=== PATIENT | male | born 1960 | race Caucasian/White ===

== ENCOUNTER → 2020-09-21 10:05 | Outpatient (BNVA) | payer OTHER, SELFPAY | PROVIDERS: Visit Provider Orthopaedic Surgery | DX: M25.562 Pain in left knee (principal) | CPT/HCPCS: 73560; 73565 ==

== ENCOUNTER 2020-11-07 10:28 | Outpatient (CLI) | payer OTHER, SELFPAY ==
--- NOTE | 2020-11-07 11:00 | MR_ITS ---
WS: [id number] MRI LEFT KNEE NONCONTRAST TECHNIQUE: Axial PD, coronal PD fat sat, coronal PD, sagittal PD, and sagittal PD fat-sat images obta ined. CLINICAL INFORMATION: M25.569 - Pain in unspecified knee COMPARISON: None. FINDINGS: Distal quadriceps and patella tendons are intact. Normal ACL and PCL. Hypertrophic patella. Small hor izontal tear involving the posterior horn medial meniscus extending to the articular surface. Normal lateral meniscus. Mild chronic thinning of the medial and lateral meniscus. Degenerative narrowing in volving both the medial and lateral joint compartments. Subchondral edema in the lateral tibial plate au. Mild chondromalacia patella. Normal popliteal fossa. Normal medial and lateral collateral ligaments. MR/MR knee LT wo con* [id number] IMPRESSION: 1. Anterior and posterior cruciate ligaments are intact. 2. Small horizontal tear involving the posterior horn medial meniscus extendin g to the articular surface. 3. Medial and lateral collateral ligaments are intact. 4. Normal popliteal fossa. 5. Mild chondromalacia patella. 6. Moderate degenerative narrowing involving the medial and lateral joint comp artments with mild to moderate chondromalacia. Subchondral edema in the lateral tibial plateau.
== END 2020-11-07 10:29 | disposition home or self-care (01) ==
LOC: RADSHAW 10:30
PROVIDERS: PCP Physician Assistant; Visit Provider Orthopaedic Surgery
DX: M22.42 Chondromalacia patellae, left knee (principal); S83.242A Other tear of medial meniscus, current injury, left knee, initial encounter; X58.XXXA Exposure to other specified factors, initial encounter
CPT/HCPCS: 73721

== ENCOUNTER → 2020-11-18 14:22 | Outpatient (BNVA) | payer OTHER, SELFPAY | PROVIDERS: PCP Physician Assistant; Visit Provider Orthopaedic Surgery | DX: Z01.812 Encounter for preprocedural laboratory examination (principal); Z20.828 Contact with and (suspected) exposure to other viral communicable diseases | CPT/HCPCS: 87635 ==

== ENCOUNTER 2020-11-24 06:36 | Day surgery (SDC) | payer OTHER, SELFPAY ==
[2020-11-23 17:23] VITALS: BMI 24.3
[2020-11-24] VITALS (7 sets, daily range): BP systolic 121–147; BP diastolic 77–94; PULSE 65–73; RESP 12–18; TEMP 36.2–36.6; O2SAT 96–100
[2020-11-24] MEDS: sodium chloride 0.9% 1,000 ML 30 ML IV (07:06)
--- NOTE | 2020-11-24 08:04 | W.PM.OPSUD ---
Surgery/Procedure H&P Update DATE OF PROCEDURE: November 24, 2020 DATE H&P PERFORMED: 11/09/20 PREOP DIAGNOSIS: Knee left medial meniscal tear PLANNED PROCEDURE: Operation Date: 11/24/20 08:00 Proposed Procedures p left knee arthroscopy with medial meniscectomy 90092 s83.207A(Left) - Remi Wilde MD
--- NOTE | 2020-11-24 08:12 | ANES.PREANE2 ---
Pre-Anesthetic Assessment Pre-Anesthetic Assessment: Height/Weight: Height 1.73 m Weight 72.575 kg Temp Pulse Resp BP Pulse Ox 97.7 F 70 18 129/86 97 11/24/20 06:48 11/24/20 06:48 11/24/20 06:48 11/24/20 06:48 11/24/20 06:48 Preop Diagnosis: Knee left medial meniscal tear Proposed Procedure: Operation Date: 11/24/20 08:00 Proposed Procedures p left knee arthroscopy with medial meniscectomy 97657 s83.207A(Left) - Remi Wilde MD Familial anesthetic complications: None Was Beta Carmella taken within 24 hours: N/A Was Clonidine taken within 24 hours: N/A Last intake: Intake Last Liquid Date 11/23/20 Last Solid Date 11/23/20 Social: Social History: No alcohol and No tobacco Exam: Pre-Anes Outpt Exam: alert, oriented x 3, clear to auscultation bilaterally and regular rate & rhythm Airway: Cervical ROM: WNL MP: 3 Dentition: False Metabolic: Metabolic: Thyroid Anesthetic Plan: ASA status: 2 Anesthesia: General Risk of > 500 ml blood loss (7ml/kg in children): No Meds/Allergies Current Medications: Current Medications Generic Name Dose Route Start Last Admin Trade Name Freq PRN Reason Stop Dose Admin Sodium Chloride 1,000 mls @ 30 ml s/hr 11/24/20 06:45 11/24/20 07:06 Sodium Chloride 0.9% IV 11/25/20 06:44 30 mls/hr .Q24H LAYNE Administration PFSH Anesthesia PFSH: Social History Smoking and tobacco status: never smoked Alcohol intake: never Data Anesthesia Cardiac Studies: No Data to Display
[2020-11-24] MEDS: morphine 4 mg/mL SDV 1 mL 8 MG IM (08:25)
--- NOTE | 2020-11-24 09:18 | P.PCN_ITS ---
PACU note PACU note: VSS, Good respiratory effort, report to SIEVE MAKER Post-Anesthesia Exam: somnolent, arousable and vital signs stable
--- NOTE | 2020-11-24 09:18 | P.OP_ITS ---
Operative Report Date of procedure: November 24, 2020 Pre-op Diagnosis: Knee left medial meniscal tear Post-op diagnosis: same Post-op Findings: Same Procedure Done: Arthroscopic right medial meniscectomy Pathology: none sent Surgeon: Remi Wilde Anesthesia: General Estimated blood loss (mL): 5 Findings: The patient had a complex tear involving the central and inferior 75% of the posterior medial meniscus. His chondral surfaces were healthy Condition: stable Disposition: PACU Procedure: The patient was taken to the operating room and given a general anesthesia his knee was infiltrated with 30 cc of 0.5% Marcaine and 8 mg of morphine. He was given 2 g of Ancef. The leg was prepped and draped in the usual fashion. A timeout was performed. The knee was entered through standard inferior medial and inferior lateral portal. The diagnostic portion arthroscopy was performed revealing the the meniscal tearing. Initially tearing it seemed to involve the central 50% of the meniscus. Utilizing a basket and Rudd and [employer]ph[employer] Me Werewolf shaver, this revealed area of undersurface flap tearing. Utilizing the shaver and werewolf this was debrided back. Altogether approximately 25% of the superior lateral meniscus were left intact. Finally area flap tearing was identified attached to the root extending into the intercondylar notch. Working with the scope through the medial portal the werewolf probe could be introduced and this could be debrided back. The remainder of the knee arthroscopy is unremarkable. The knee was irrigated with saline. Portals were closed with 3-0 Prolene. Sterile dressings were applied. The patient was extubated taken recovery room in stable condition.
--- NOTE | 2020-11-24 09:18 | PM.PACU ---
PACU note PACU note: VSS, Good respiratory effort, report to DINING ROOM SERVER Post-Anesthesia Exam: somnolent, arousable and vital signs stable
--- NOTE | 2020-11-24 20:46 | ANE.PACU2 ---
Inpatient post-anesthesia follow up: Airway intact: Yes Vital signs: Temperature 97.8 F Pulse Rate 73 Respiratory Rate 18 Blood Pressure 147/94 Pulse Oximetry 99 Oxygen Delivery Me thod Room Air Oxygen Flow Rate 8 Fraction of Inspir ed Oxygen Hydration adequate: Yes Nausea and vomiting: No Pain level: 3 Mental status: Baseline
== END 2020-11-24 10:50 | disposition home or self-care (01) ==
PROVIDERS: PCP Physician Assistant; Visit Provider Orthopaedic Surgery
PROC: (CPT 29870; principal; 2020-11-24 08:00)
DX: S83.242A Other tear of medial meniscus, current injury, left knee, initial encounter (principal); X58.XXXA Exposure to other specified factors, initial encounter
CPT/HCPCS: 29881; J0690; J2270; J2704; J3010; J3490; J7030

== ENCOUNTER 2021-09-15 14:40 | Outpatient (CLI) | payer BC, SELFPAY ==
--- NOTE | 2021-09-15 15:08 | MR_ITS ---
WS: [id number] MRI HEAD WITH CONTRAST TECHNIQUE: Sagittal T1, T2 axial, T2 axial FLAIR, axial susceptibility weighted imaging, axial diffus ion weighted images, and coronal T2 images were obtained. Pre and post-T1 axial and post T1 coronal i mages. ADC and FSPGR images. CLINICAL INFORMATION: TIA COMPARISON: MRI and May 10, 2019. CT FINDINGS: No evidence of restricted diffusion to suggest acute ischemia. Ventricular system and basal cisterns are patent. Mild small vessel changes. Mild parenchymal volume loss. Normal posterior fossa. Normal v ascular flow voids at the skull base. No extra-axial fluid collections. No evidence of mass or mass e ffect. No hemosiderin on the susceptibly weighted images. Paranasal sinuses and mastoid air cells are well aerated. Normal optic chiasm and pituitary infundibulum. No abnormal gadolinium enhancement. No enhancing intr acranial lesions. Normal dural venous sinuses. MR/MR head wo/w con [id number] IMPRESSION: 1. No evidence of restricted diffusion to suggest acute ischemia. 2. Mild small vessel changes with moderate parenchymal volume loss. 3. No abnormal gadolinium enhancement. 4. No hemosiderin on susceptibly weighted images. 5. No acute intracranial findings. No significant changes since 2018
[2021-09-15] MEDS: gadobenate dimeglumine 20 mL vial IV (15:51)
--- NOTE | 2021-09-15 16:27 | USCV_ITS ---
Roman Israel Age: 61 Gender: M : 1960 Exam Date: 09/15/2021 16:32 Ordering Phys: Nicolette Howe Technologist: TEE [place]am [place] [facility] [place]: TIA BP: 150 / 83 HR: 88 Rhythm: Sinus Technical Quality: Technically difficult study MEASUREMENTS (Male / Female) Normal Values 2D ECHO LV Diastolic Diameter PLAX 3.9 cm 4.2 - 5.9 / 3.9 - 5.3 cm LV Systolic Diameter PLAX 2.6 cm IVS Diastolic Thickness 1.6 cm 0.6 - 1.0 / 0.6 - 0.9 cm IVS Systolic Thickness 1.4 cm LVPW Diastolic Thickness 0.9 cm 0.6 - 1.0 / 0.6 - 0.9 cm LVPW Systolic Thickness 1.4 cm LVOT Diameter 2.0 cm LV Ejection Fraction 2D Teich 63.9 % LV Ejection Fraction MOD 2C 61.9 % LV Ejection Fraction 2C AL 62.2 % LA Diameter 2.6 cm LA Width 3.4 cm LA Height 3.4 cm RA Width 3.2 cm RA Height 3.8 cm Aorta at Sinotubular Diameter 2.2 cm M-MODE Aortic Annulus Diameter 3.3 cm LA Ao Ratio MM 0.9 MV E Point Septal Separation 0.3 cm DOPPLER AV Peak Velocity 122.0 cm/s LVOT Peak Velocity 106.0 cm/s AV Area Cont Eq vti 2.8 cm squared AV Area Cont Eq pk 2.8 cm squared MV Area PHT 4.2 cm squared Mitral E to A Ratio 0.8 MV E' Velocity 25.8 cm/s Mitral E to MV E' Ratio 6.8 Mitral E to LV E' Lateral Ratio 6.1 Mitral E to LV E' Septal Ratio 7.7 TR Peak Velocity 246.0 cm/s TR Peak Gradient 24.2 mmHg TV Peak E Velocity 49.0 cm/s PV Peak Velocity 135.0 cm/s RV Acceleration Time 0.2 s RV Ejection Time 0.4 s RV AcT/ET 0.5 FINDINGS Left Ventricle Normal left ventricular cavity size. Normal left ventricular systolic function. No regional wall motion abnormalities. Left ventricular ejection fraction is estimated at 63 %. Grade I/IV diastolic dysfunction (abnormal relaxation filling pattern), normal to mildly elevated filling pressures. Right Ventricle The right ventricle is normal in size and function. RVSP could not be calculated due to incomplete tricuspid regurgitation velocity profile. Right Atrium The right atrium is normal in size. Left Atrium The left atrium is normal in size. Mitral Valve Structurally normal mitral valve without significant stenosis or prolapse. There is no mitral regurgitation. Aortic Valve Structurally normal aortic valve without significant sclerosis or stenosis. There is no aortic regurgitation. Tricuspid Valve Structurally normal tricuspid valve without significant stenosis or regurgitation. Pulmonic Valve Structurally normal pulmonic valve without significant stenosis. There is no pulmonic regurgitation. Pericardium Normal pericardium without effusion. Aorta Normal ascending aorta dimension. CONCLUSIONS 1-Normal left ventricular cavity size. Normal left ventricular systolic function. No regional wall motion abnormalities. Left ventricular ejection fraction is estimated at 63 %. Grade I/IV diastolic dysfunction (abnormal relaxation filling pattern), normal to mildly elevated filling pressures. 2-There is no pericardial effusion. 3-No significant valve abnormalities. 4-The right ventricle is normal in size and function. RVSP could not be calculated due to incomplete tricuspid regurgitation velocity profile. 5-No significant change since the prior echocardiogram study of 05/11/2019. Eddie Norman MD (Electronically Signed) Final Date: 16 September 2021 18:03 S EDGAR
== END 2021-09-15 14:41 | disposition home or self-care (01) ==
PROVIDERS: PCP Physician Assistant; Visit Provider Physician Assistant
DX: G45.9 Transient cerebral ischemic attack, unspecified (principal)
CPT/HCPCS: 70553; 93306

== ENCOUNTER 2022-03-11 10:21 | Observation (INO) | payer BC, SELFPAY ==
[2022-03-11] VITALS (11 sets, daily range): BP systolic 149–180; BP diastolic 82–110; PULSE 61–99; RESP 16–20; TEMP 36.4–36.7; O2SAT 94–98; BMI 22.0; BMI 22.1
--- NOTE | 2022-03-11 10:24 | ED_ITS ---
HPI - Trauma General: Chief Complaint: Trauma Stated Complaint: UNRESPONSIVE; FALL FROM LADDER Time Seen by Provider: 03/11/22 10:24 Limitations: other History of Present Illness: Mr. Owens is a 61-year-old gentleman with history of daily alcohol use who presents to the emergency department due to fall of unclear circumstances with positive loss of consciousness. Apparently he was painting a regular size wall and is unsure of what happened. Per EMS report the patient was completely unresponsive and there is a possibility of CPR performed however upon their arrival there initial thought was to fly him however he subsequently improved with normalization of mental status. He does not recall events. Does have a remote history of seizures though no underlying diagnosed seizure disorder. Patient himself only provides limited history. Onset (ago): minute(s) Loss of Consciousness: yes Context: fall Review of Systems General: Reports: 10 or more systems reviewed and unremarkable except in HPI and below [facility] ED PFSH: Medical History (Updated 03/25/22 @ 22:09 by Armando Wang MD) No significant past medical history Surgical History (Updated 03/25/22 @ 22:09 by Armando Wang MD) No significant past surgical history Social History Smoking and tobacco status: never smoked Alcohol intake: never Physical Exam Const: COMMON NORMALS: alert GENERAL APPEARANCE: cooperative and well developed HENMT: COMMON NORMALS: normocephalic HEAD & SCALP: normocephalic OTHER: No german signs or raccoon eyes. No hemotympanum. No otorrhea or rhinorrhea. Jaw alignment normal. Dentition baseline. No obvious bony step-offs. No septal hematoma. No evidence of ocular entrapment. Eye: COMMON NORMALS: conjunctivae normal CONJUNCTIVA: Yes conjunctivae normal SCLERA: sclerae normal Neck/C-Spine: COMMON NORMALS: supple GENERAL: Yes trachea midline Resp: COMMON NORMALS: normal respiratory effort and clear to auscultation bilaterally EFFORT & INSPECTION: Yes able to speak in complete sentences AUSCULTATION: clear to auscultation bilaterally Cardio: COMMON NORMALS: regular rate and regular rhythm RATE: regular rate RHYTHM: regular rhythm GI: COMMON NORMALS: Soft to palpation PALPATION: Yes Soft to palpation, Yes Tenderness to palpation present (GI), No Guarding due to palpation present (GI) and No Rigid due to palpation PERCUSSION: normal to percussion Extremity: GENERAL: Yes normal exam except as noted and No edema Neuro: COMMON NORMALS: moves all extremities SENSORIUM/ORIENTATION: Yes alert and No Orientation impaired Psych: COMMON NORMALS: mental status grossly normal and Normal thought process present THOUGHT PROCESS: Normal thought process present Course ED course: - Patient was seen and evaluated by me at bedside - Patient placed on cardiac monitors, IV access obtained - Initial evaluation notable for exam as above, scattered areas of tenderness to palpation. No focal neurologic deficits. - Labs personally interpreted by me. EKG with sinys rhythm, no stemi. -Tdap given for abrasions. IV fluids given - Labs notable for no leukocytosis or anemia. Metabolic panel is likely with evidence of dehydration, Anion gap significantly elevated. Transaminitis present. Delta troponin negative. Alcohol negative. - Imaging notable for negative head CT. Right-sided deviation of the nasal sep christian, patient reports that this is chronic. No evidence of septal hematoma or tenderness to palpation. Negative cervical spine CT. No acute traumatic injury to chest abdomen or pelvis. - Upon serial reexamination after treatment the patient was somewhat improved - Based on patient history, evaluation, and testing as interpreted the most likely cause of the patient's condition is syncope and fall of unclear etiology - The results of ED evaluation were discussed with the patient including plan f or admission due to requirement for level of care not available if discharged to prevent significant worsening/deterioration. - Admitting service was contacted and Dr Campbell with the hospitalist [facility] ahnd to admit the patient - Patient was admitted without further deterioration or significant events. Note: Click bubbles or prepopulated krishna in note writing are used for assistance with data collection and billing and are inherently more limited than narrative and other text portions of this note. Please use narrative for additional clinical history and defer to narrative/free test for any case of contradictory information. If information appears in only free text or click bubble it should be considered present or absent as reported. Please contact note television writer for clarifications of clinical information or contradictory information. MDM is a brief summary, contradictory or erroneous seeming information should be clarified and full note should be reviewed. Vital Signs: Vital signs: Vital Signs Temperature 97.7 F 03/12/22 19:06 Pulse Rate 84 03/12/22 19:06 Respiratory Rate 18 03/12/22 19:06 Blood Pressure 149/73 03/12/22 19:06 Pulse Oximetry 98 03/12/22 19:06 MDM - Trauma Medical Decision Making 61-year-old gentleman presenting with fall under unclear circumstances with initial alteration in mental status. Patient noted to have evidence of dehydration with elevated anion gap on metabolic panel. CT negative for acute traumatic injury. Admitted for further management of syncope and dehydration. Medical Records I reviewed the patient's medical records. Lab Data I reviewed the patient's lab results. : 03/12/22 02:54 03/12/22 02:54 Radiology Impressions Cervical Spine CT 03/11/22 10:30 IMPRESSION: No acute findings. Chest/Abdomen/Pelvis CT 03/11/22 10:30 IMPRESSION: No acute traumatic intrathoracic findings. IMPRESSION: No acute traumatic intra-abdominal findings. Face CT 03/11/22 10:30 IMPRESSION: Right-sided deviation of the nasal septum which may be chronic. Correlate for signs of nasal fracture. Otherwise, no acute findings. Head CT 03/11/22 10:30 IMPRESSION: No acute intracranial abnormality. Head/Neck CTA 03/12/22 13:42 IMPRESSION: No large vessel stenosis or occlusion. IMPRESSION: 1. Calcified plaque in the proximal internal carotid arteries with 0% stenosis. REFERENCES: NASCET CRITERIA. The degree of internal carotid artery stenosis is based on NASCET criteria. Normal is no stenosis. Mild is less than 50% stenosis. Moderate is 50-69% stenosis. Severe is 70% to 99% stenosis. Total occlusion is no detectable patent lumen. Laboratory Results WBC 8.7 10^3/uL (4.0-10.0) 03/11/22 10: RBC 4.65 10^6/uL (4.1-5.3) 03/11/22 10:26 Hgb 14.2 g/dL (11.7-16.6) 03/11/22 10: Hct 42.1 % (42.0-52.0) 03/11/22 10: MCV 90.5 fl (80-94) 03/11/22 10: MCH 30.5 pg (28.0-34.0) 03/11/22 10: MCHC 33.7 g/dL (30.0-36.0) 03/11/22 10: RDW 12.1 % (12.1-15.1) 03/11/22 10: Plt Count 304 10^3/cmm (130-400) 03/11/22 10: MPV 8.9 fL (7.4-10.4) 03/11/22 10: Neut % (Auto) 49.9 % 03/11/22 10: Lymph % (Auto) 38.7 % 03/11/22 10: [place] % (Auto) 10.1 % 03/11/22 10: Eos % (Auto) 0.5 % 03/11/22: Baso % (Auto) 0.5 % 03/11/22: Neut # (Auto) 4.32 10^3/uL (1.8-7.7) 03/11/22 10: Lymph # (Auto) 3.4 10^3/uL (0.8-4.8) 03/11/22 10: [place] # (Auto) 0.9 10^3/uL (0.2-0.9) 03/11/22 10: Eos # (Auto) 0.0 10^3/uL (0.0-0.8) 03/11/22 10: Baso # (Auto) 0.0 10^3/uL (0.0-0.1) 03/11/22 10: Nucleated RBC % (auto) 0 % 03/11/22 10: Nucleated RBCs # 0.0 /100WBC 03/11/22 10: Sodium 131 mmol/L (136-145) L 03/11/22 10:30 Potassium 3.6 mmol/L (3.5-5.1) 03/11/22 10: Chloride 87 mmol/L (98-107) L 03/11/22 10:30 Carbon Dioxide 13 mmol/L (22-29) L 03/11/22 10:30 Anion Gap 34.6 (5-19) H 03/11/22 10:30 BUN 6 mg/dL (8-23) L 03/11/22 10:30 Creatinine 1.0 mg/dL (0.7-1.2) 03/11/22 10:30 GFR Calculation 75.7 mL/min (90-130) L 03/11/22 10:30 Glucose 136 mg/dL (65-115) H 03/11/22 10:30 POC Glucose 130 mg/dL (70-110) H 03/11/22 11:26 Calculated Osmolality 272 mOsm/kg (285-295) L 03/11/22 10:30 Calcium 9.4 mg/dL (8.5-10.5) 03/11/22 10:30 Magnesium 2.2 mg/dL (1.7-2.3) 03/11/22 10:30 Total Bilirubin 0.4 mg/dL (0.15-1.2) 03/11/22 10:30 AST 78 U/L (0-40) H 03/11/22 10:30 ALT 61 U/L (0-41) H 03/11/22 10:30 Alkaline Phosphatase 161 IU/L (40-130) H 03/11/22 10:30 Troponin T Baseline 7 ng/L (0-15) 03/11/22 10:30 Troponin T 120 Minute 6.82 ng/L (0-15) 03/11/22 12:51 Delta Troponin T -0.18 ABS# (0-10) L 03/11/22 12:51 Total Protein 8.6 g/dL (6.6-8.7) 03/11/22 10:30 Albumin 5.2 g/dL (3.5-5.2) 03/11/22 10:30 Globulin 3.4 g/dL (1.3-4.6) 03/11/22 10:30 Ethyl Alcohol < 10 mg/dL (0-10) 03/11/22 10:30 Discharge Plan Discharge Patient Disposition: Placed in Observation Admit Provider: Ja Campbell Clinical Impression: Loss of consciousness, Fall, Dehydration Discharge Diet: Cardiac Discharge Activity: Resume usual activity and Increase activity as tolerated Coding Level of Care Code ED Caddy Packer for Yaya Mosquera
--- NOTE | 2022-03-11 10:30 | CTR_ITS ---
PROCEDURE INFORMATION: Exam: CT Maxillofacial Without Contrast Exam date and time: 03/11/2022 10:49 AM Age: 61 years old Clinical indication: Injury or trauma; Fall; Work related; Blunt trauma (contusions or hematomas); Forehead; Additional info: Trauma, AMS TECHNIQUE: Imaging protocol: Computed tomography of the of the face without contrast. Radiation optimization: All CT scans at this facility use at least one of these dose optimization techniques: automated exposure control; mA and/or kV adjustment per patient size (includes targeted exams where dose is matched to clinical indication); or iterative reconstruction. COMPARISON: CT head wo con* [id number] 03/11/2022 10:47 AM RADIATION DOSE METRICS: Total DLP (mGy-cm): 570.33 FINDINGS: Orbital cavities: Orbits are normal. Globes are unremarkable. Bones/joints: No acute fracture. Nasal septum with right-sided deviation. Paranasal sinuses: Normal. No air-fluid levels. Soft tissues: Right frontal and left periorbital contusions. CT/CT facial bones wo con* [id number] IMPRESSION: Right-sided deviation of the nasal septum which may be chronic. Correlate for signs of nasal fracture. Otherwise, no acute findings.
--- NOTE | 2022-03-11 10:30 | CTR_ITS ---
PROCEDURE INFORMATION: Exam: CT Head Without Contrast Exam date and time: 03/11/2022 10:47 AM Age: 61 years old Clinical indication: Injury or trauma; Fall; Work related; Blunt trauma (contusions or hematomas); Additional info: Trauma, AMS TECHNIQUE: Imaging protocol: Computed tomography of the head without contrast. Radiation optimization: All CT scans at this facility use at least one of these dose optimization techniques: automated exposure control; mA and/or kV adjustment per patient size (includes targeted exams where dose is matched to clinical indication); or iterative reconstruction. COMPARISON: MR head wo/w con [id number] 09/15/2021 3:17 PM RADIATION DOSE METRICS: Total DLP (mGy-cm): 1067.05 FINDINGS: Brain: Normal. No hemorrhage. Unremarkable white matter. No mass effect. Cerebral ventricles: No ventriculomegaly. Paranasal sinuses: Visualized sinuses are unremarkable. No fluid levels. Mastoid air cells: Visualized mastoid air cells are well aerated. Bones/joints: Unremarkable. No acute fracture. Soft tissues: Right forehead and left periorbital contusions. CT/CT head wo con* [id number] IMPRESSION: No acute intracranial abnormality.
--- NOTE | 2022-03-11 10:30 | CTR_ITS ---
PROCEDURE INFORMATION: Exam: CT Cervical Spine Without Contrast Exam date and time: 03/11/2022 10:53 AM Age: 61 years old Clinical indication: Injury or trauma; Fall; Work related; Blunt trauma; Additional info: Trauma, AMS TECHNIQUE: Imaging protocol: Computed tomography of the cervical spine without contrast. Radiation optimization: All CT scans at this facility use at least one of these dose optimization techniques: automated exposure control; mA and/or kV adjustment per patient size (includes targeted exams where dose is matched to clinical indication); or iterative reconstruction. COMPARISON: CT facial bones wo con* [id number] 03/11/2022 10:49 AM RADIATION DOSE METRICS: Total DLP (mGy-cm): 228.77 FINDINGS: Bones/joints: No acute fracture. Normal alignment. Discs/Spinal canal/Neural foramina: No significant disc protrusion. No severe spinal canal stenosis. No significant neural foraminal narrowing. Lungs: Lung apices are normal. Soft tissues: Unremarkable. CT/CT cervical spin wo con* [id number] IMPRESSION: No acute findings.
--- NOTE | 2022-03-11 10:30 | CTR_ITS ---
PROCEDURE INFORMATION: Exam: CT Chest With Contrast; Diagnostic Exam date and time: 03/11/2022 10:57 AM Age: 61 years old Clinical indication: Injury or trauma; Fall; Work related; Generalized; Blunt trauma (contusions or hematomas); Additional info: Trauma, AMS TECHNIQUE: Imaging protocol: Diagnostic computed tomography of the chest with contrast. Radiation optimization: All CT scans at this facility use at least one of these dose optimization techniques: automated exposure control; mA and/or kV adjustment per patient size (includes targeted exams where dose is matched to clinical indication); or iterative reconstruction. Contrast material: VISIPAQUE 320; Contrast volume: 95 ml; Contrast route: INTRAVENOUS (IV); COMPARISON: CR Chest 1 [place] [id number] 05/10/2019 8:41 PM RADIATION DOSE METRICS: Total DLP (mGy-cm): 1242.1 FINDINGS: Lungs: Unremarkable. No consolidation. No masses. Pleural spaces: Unremarkable. No pneumothorax. No pleural effusion. Heart: Unremarkable. No cardiomegaly. No pericardial effusion. Lymph nodes: Unremarkable. No enlarged lymph nodes. Vasculature: Unremarkable. No aortic aneurysm. Bones/joints: Unremarkable. No acute fracture. Soft tissues: Unremarkable. PROCEDURE INFORMATION: Exam: CT Abdomen And Pelvis With Contrast Exam date and time: 03/11/2022 10:57 AM Age: 61 years old Clinical indication: Injury or trauma; Fall; Work related; Generalized; Blunt trauma (contusions or hematomas); Additional info: Trauma, AMS TECHNIQUE: Imaging protocol: Computed tomography of the abdomen and pelvis with contrast. Radiation optimization: All CT scans at this facility use at least one of these dose optimization techniques: automated exposure control; mA and/or kV adjustment per patient size (includes targeted exams where dose is matched to clinical indication); or iterative reconstruction. Contrast material: VISIPAQUE 320; Contrast volume: 95 ml; Contrast route: INTRAVENOUS (IV); COMPARISON: ES surgery / GI images 11/24/2020 4:44 AM RADIATION DOSE METRICS: Total DLP (mGy-cm): 1242.1 FINDINGS: Liver: Normal. No mass. Gallbladder and bile ducts: Normal. No calcified stones. No ductal dilation. Pancreas: Normal. No ductal dilation. Spleen: Normal. No splenomegaly. Adrenal glands: Normal. No mass. Kidneys and ureters: Normal. No hydronephrosis. Stomach and bowel: Unremarkable. No obstruction. No mucosal thickening. Appendix: No evidence of appendicitis. Intraperitoneal space: Unremarkable. No free air. No significant fluid collection. Vasculature: Unremarkable. No abdominal aortic aneurysm. Lymph nodes: Unremarkable. No enlarged lymph nodes. Urinary bladder: Unremarkable as visualized. Reproductive: Unremarkable as visualized. Bones/joints: No acute fracture. Soft tissues: Unremarkable. CT/CT chest abd pel w con* IMPRESSION: No acute traumatic intrathoracic findings. IMPRESSION: No acute traumatic intra-abdominal findings.
[2022-03-11 10:38] LABS: Basophils % 0.5 %; Eosinophils % 0.5 %; Hematocrit 42.1 % (42.0-52.0); Hemoglobin 14.2 g/dL (11.7-16.6); Lymphocytes # 3.4 10^3/uL (0.8-4.8); Lymphocytes % 38.7 %; Mean Corpuscular HGB Conc 33.7 g/dL (30.0-36.0); Mean Corpuscular Hemoglobin 30.5 pg (28.0-34.0); Mean Corpuscular Volume 90.5 fl (80-94); Mean Platelet Volume 8.9 fL (7.4-10.4); Monocytes # 0.9 10^3/uL (0.2-0.9); Monocytes % 10.1 %; Neutrophils # 4.32 10^3/uL (1.8-7.7); Neutrophils % 49.9 %; Nucleated Red Blood Cells % 0 %; Platelet Count 304 10^3/cmm (130-400); Red Blood Count 4.65 10^6/uL (4.1-5.3); Red Cell Distribution Width 12.1 % (12.1-15.1); White Blood Count 8.7 10^3/uL (4.0-10.0)
[2022-03-11] MEDS: tetanus-dipt-pertussis 0.5 mL SDV IM (11:15)
[2022-03-11 11:30] LABS: Glucose Point of Care 130 mg/dL (70-110)
[2022-03-11 11:30] LABS: Troponin(5th) Baseline 7 ng/L (0-15)
--- NOTE | 2022-03-11 12:31 | ECG_ITS ---
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 Measurements Intervals [place] Rate: 80 P: 47 LA: 136 QRS: 73 QRSD: 98 T: 64 QT: 418 QTc: 483 Interpretive Statements SINUS RHYTHM Compared to ECG 05/11/2019 00:07:46 Sinus arrhythmia no longer present Short LA interval no longer present Electronically Signed On 03-11-2022 23:42:28 CDT by Jamie Alejandro M.D. [id number]
[2022-03-11 12:46] LABS: Alanine Aminotransferase 61 U/L (0-41); Albumin Level 5.2 g/dL (3.5-5.2); Alcohol Level < 10 mg/dL (0-10); Alkaline Phosphatase 161 IU/L (40-130); Anion Gap 34.6 (5-19); Aspartate Amino Transferase 78 U/L (0-40); Blood Urea Nitrogen 6 mg/dL (8-23); Calcium 9.4 mg/dL (8.5-10.5); Carbon Dioxide 13 mmol/L (22-29); Chloride 87 mmol/L (98-107); Globulin 3.4 g/dL (1.3-4.6); Glomerular Filtration Rate 75.7 mL/min (90-130); Glucose 136 mg/dL (65-115); Osmolality Calculated 272 mOsm/kg (285-295); Potassium 3.6 mmol/L (3.5-5.1); Sodium 131 mmol/L (136-145); Total Bilirubin 0.4 mg/dL (0.15-1.2); Total Protein 8.6 g/dL (6.6-8.7)
[2022-03-11] MEDS: sodium chloride 0.9% 1,000 ML 999 ML IV (13:26)
[2022-03-11 13:35] LABS: Magnesium 2.2 mg/dL (1.7-2.3)
[2022-03-11 13:59] LABS: Troponin 5 2HR 6.82 ng/L (0-15)
[2022-03-11 14:10] LABS: Troponin 5 2HR Delta -0.18 ABS# (0-10)
--- NOTE | 2022-03-11 16:31 | ECG_ITS ---
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 Measurements Intervals [place] Rate: 76 P: 29 WV: 128 QRS: 71 QRSD: 100 T: 63 QT: 415 QTc: 469 Interpretive Statements SINUS RHYTHM Compared to ECG 03/11/2022 11:20:39 No significant changes Electronically Signed On 03-11-2022 23:42:08 CDT by Jamie Alejandro M.D. [id number]
--- NOTE | 2022-03-11 17:02 | USCV_ITS ---
Israel Owens Age: 61 Gender: M : 1960 Exam Date: 03/11/2022 20:55 Ordering Phys: Ja Campbell MD Technologist: Alan Merino [place] [facility] [place]ication: loss of consciousness BP: 164 / 110 HR: 77 Rhythm: Sinus Technical Quality: Difficult MEASUREMENTS (Male / Female) Normal Values 2D ECHO LV Diastolic Diameter PLAX 4.1 cm 4.2 - 5.9 / 3.9 - 5.3 cm LV Systolic Diameter PLAX 3.4 cm IVS Diastolic Thickness 1.2 cm 0.6 - 1.0 / 0.6 - 0.9 cm IVS Systolic Thickness 1.7 cm LVPW Diastolic Thickness 1.7 cm 0.6 - 1.0 / 0.6 - 0.9 cm LVPW Systolic Thickness 1.7 cm LVOT Diameter 2.0 cm LV Ejection Fraction 2D Teich 25.0 % LV Ejection Fraction MOD 2C 70.7 % LV Ejection Fraction 2C AL 71.9 % LA Diameter 3.5 cm LA Width 3.7 cm LA Height 3.1 cm RA Width 2.9 cm RA Height 3.4 cm Aorta at Sinotubular Diameter 2.4 cm IVC Diameter 1.7 cm M-MODE Aortic Annulus Diameter 2.7 cm LA Ao Ratio MM 1.3 MV E Point Septal Separation 0.9 cm DOPPLER AV Peak Velocity 122.3 cm/s LVOT Peak Velocity 75.0 cm/s AV Area Cont Eq vti 2.2 cm squared AV Area Cont Eq pk 1.9 cm squared MV Area PHT 3.2 cm squared Mitral E to A Ratio 0.8 MV E' Velocity 33.0 cm/s Mitral E to MV E' Ratio 6.3 Mitral E to LV E' Lateral Ratio 6.0 Mitral E to LV E' Septal Ratio 6.7 TR Peak Velocity 112.8 cm/s TR Peak Gradient 5.1 mmHg TR Mean Velocity 92.7 cm/s TR Mean Gradient 3.8 mmHg TR Velocity Time Integral 34.4 cm Right Atrial Pressure 3.0 mmHg Pulmonary Artery Systolic Pressu 8.1 mmHg PV Peak Velocity 124.0 cm/s FINDINGS Left Ventricle Normal left ventricular size. LV systolic function is normal with EF of 55-60%. No regional wall motion abnormalities. Grade 1 diastolic dysfunction Right Ventricle The right ventricle is normal in size and function. Right Atrium The right atrium is normal in size. Left Atrium The left atrium is normal in size. Mitral Valve Structurally normal mitral valve without significant stenosis or prolapse. There is no mitral regurgitation. Aortic Valve Grossly normal without significant stenosis. There is no aortic regurgitation. Tricuspid Valve Grossly normal without significant stenosis. Trace tricuspid regurgitation. Insufficient TR jet to calculate RVSP Pulmonic Valve Not well visualized Pericardium Normal pericardium without effusion. Aorta Normal ascending aorta dimension. IVC CONCLUSIONS Technically limited quality echocardiogram because of poor ultrasonic windows. LV systolic function is normal with EF of 55-60% Grade 1 diastolic dysfunction Trace tricuspid regurgitation Compared to prior echocardiogram from 09/15/2021, no significant changes were noted Jamie Alejandro MD (Electronically Signed) Final Date: 12 March 2022 00:18 S
--- NOTE | 2022-03-11 17:03 | P.HP_ITS ---
Providers/Chief Complaint Admitting Physician: Ja Campbell MD Primary Care Provider: Nicolette Howe Chief Complaint: UNRESPONSIVE; FALL FROM LADDER History of Present Illness Israel Owens is a 61 year old male with past medical history of hypothyroidism, was brought in with chief complaint of, after being found down by his friend today at his home, when I interacted with the patient He told me that he was at his usual self prior to this episode, he was painting his wall today at home, and thinks that likely spray from the paint made him lose his consciousness, he denies any preceding chest pain shortness of breath nausea vomiting, dizziness headache, blurred vision, weakness in any body part. Upon arrival in the ER: Pertinent imaging studies done: Included: CT head without contrast: No acute intracranial pathology CT facial bones without contrast: Right-sided deviation of the nasal septum which may be chronic.Right frontal and left periorbital contusions. CT chest abd pel w con: No acute findings CT cervical spin wo con: No acute findings. EKG: SR Labs: WBC 8.7, H&H:14/42, PLT : 304 , sodium 131 , potassium 3.6, BUN serum creatinine:6/1 , random blood glucose:136, AST 78 ALT 61 ALP 161 , anion gap:34 , serum bicarb :13 Troponin trend: 7,6,6 Urinalysis: Clean, blood alcohol level <10 Review of Systems General: Reports: 10 or more systems reviewed and unremarkable except in HPI and below Const: Denies: fever(s), chills, body aches, change in appetite or diaphoresis Card: Denies: palpitations, edema, swelling of feet/ankles, dyspnea on exertion, orthopnea or leg pain with exertion Resp: Denies: dyspnea, productive cough, wheezing or pain on inspiration GI: Denies: abdominal pain, nausea, vomiting, diarrhea or constipation : Denies: flank pain or difficulty urinating Musc: Denies: back pain, extremity pain or extremity swelling Neuro: Reports: headache(s); Denies: difficulty walking or confusion Medications/Allergies Home Medications Medication Instructions Recorded Confirmed Last Taken Type cyanocobalamin (vitamin B-12) 1,000 mcg SUBCUT UNK 11/23/20 03/11/22 03/11/22 History 1,000 mcg/mL injection solution acetaminophen 325 mg tablet 650 mg PO QID PRN 11/24/20 03/11/22 11/23/20 History (Tylenol) levothyroxine 75 mcg tablet 75 mcg PO DAILY 03/11/22 03/11/22 03/11/22 History venlafaxine 150 mg 150 mg PO DAILY 03/11/22 03/11/22 03/11/22 History capsule,extended release 24 hr Allergies Allergy/AdvReac Type Severity Reaction Status Date / Time No Known Allergies Allergy Verified 02/15/21 08:03 PFSH Acute PFSH: Social History Smoking and tobacco status: never smoked Alcohol intake: never Vitals/I&O/Wt Last Vital Signs Temp 97.6 F 03/11/22 10:26 Pulse 73 03/11/22 15:00 Resp 20 H 03/11/22 10:26 BP 164/110 03/11/22 15:00 Pulse Ox 97 03/11/22 15:00 03/11/22 03/11/22 03/11/22 06:59 14:59 22:59 Intake Total 1000 / 1000 Balance 1000 / 1000 Weight last 48 hrs Weight 64.229 kg Weight 65.771 kg Physical Exam Const: COMMON NORMALS: patient oriented x3 HENMT: EXTERNAL EAR: Yes external ears normal Eye: COMMON NORMALS: no scleral icterus GENERAL EYE: appearance normal, both eyes and all related structures Chest: CHEST: Yes Symmetrical chest wall rise Resp: COMMON NORMALS: normal respiratory effort, No retractions, No use of accessory muscles and clear to auscultation bilaterally EFFORT & INSPECTION: Yes symmetric chest movement AUSCULTATION: clear to auscultation bilaterally Cardio: COMMON NORMALS: regular rate, regular rhythm, S1 normal heart sound present, S2 normal heart sound present, No gallops present (Cardio), No murmurs present (Cardio), No rub (Cardio) and Peripheral pulses 2+ throughout RATE: regular rate RHYTHM: regular rhythm HEART SOUNDS: S1 normal heart sound present and S2 normal heart sound present PERIPHERAL PULSES: Peripheral pulses 2+ throughout GI: COMMON NORMALS: Normal to inspection, nondistended, normoactive bowel kamari nds present, Soft to palpation, non-tender, No hepatosplenomegaly present and no masses AUSCULTATION: Yes normoactive bowel sounds PALPATION: Yes Soft to palpation and Yes No hepatosplenomegaly present RECTAL EXAM: Yes deferred Extremity: COMMON NORMALS: no clubbing, cyanosis or edema and no pedal edema Neuro: COMMON NORMALS: patient oriented x3 Data : 03/11/22 10:26 03/11/22 10:30 A&P Assessment and plan (1) Fall: Status: Acute (2) Dehydration: Status: Acute (3) Syncope and collapse: Status: Acute Plan 61 year old male with past medical history of hypothyroidism, was brought in wi th chief complaint of, after being found down by his friend today at his home. Assessment: Syncope with collapse: Possibly vasovagal, versus due to inhalation of, noxious paint smell Hypothyroidism Increased anion gap Dehydration Plan: Continue IV hydration with normal saline surveillance system monitor Intake output chart Orthostatic vitals check Follow 2D echo: He has a recent 2D echo done in Sep this year: Findings noted Follow vitamin B12 level CODE STATUS; full code DVT prophylaxis: On Lovenox Attestations Medical Necessity Statement*: Patient is to be in hospital for management of syncope. Time Spent in Patient Care: Greater than 35 minutes (>than 50% of time spent in counselling and/or direct pt care on unit) . Coding Level of Care Code Acute Associate Manager for Chg Fwd Exam Comprehensive Diagnoses Fall W19.XXXA Dehydration E86.0 Syncope and collapse R55
[2022-03-11 17:41] LABS: Urine Appearance Clear (CLEAR); Urine Color Straw (Yellow)
[2022-03-11 17:42] LABS: pH Urine 7 (5-7)
[2022-03-11 17:43] LABS: Add Urine Microscopic? YES; Bilirubin Urine Neg (Negative); Blood Urine Neg (Negative); Glucose Urine UA Norm (Normal); Ketones Urine Negative (Negative); Leukocyte Esterase Urine Negative (Negative); Nitrate Urine Negative (Negative); Protein Urine Trace (Negative); Specific Gravity, Urine 1.005 (1.005-1.030); Urobilinogen Urine Norm (Negative)
[2022-03-11 17:44] LABS: Add Urine Culture? No; Bacteria Urine TRACE /hpf; WBC Urine RARE /hpf (0-5)
[2022-03-11] MEDS: enoxaparin 30 mg/0.3 mL Syringe SUBCUT (18:16)
[2022-03-11] MEDS: sodium chloride 0.9% 1,000 ML 125 ML IV (18:16)
[2022-03-11 18:52] LABS: Troponin 5 6HR Delta -0.8 ng/L (0-12)
--- NOTE | 2022-03-11 23:38 | PC.NURSE ---
Bruising starting to form around left eye and eyebrow area
[2022-03-12] VITALS (8 sets, daily range): BP systolic 149–180; BP diastolic 71–93; PULSE 63–84; RESP 13–18; TEMP 36.5–37; O2SAT 95–98
[2022-03-12] MEDS: sodium chloride 0.9% 1,000 ML 125 ML IV ×2 (00:54→09:55)
[2022-03-12 03:55] LABS: Basophils % 0.3 %; Eosinophils % 0.3 %; Hematocrit 35.4 % (42.0-52.0); Hemoglobin 12.2 g/dL (11.7-16.6); Lymphocytes # 1.2 10^3/uL (0.8-4.8); Lymphocytes % 19.8 %; Mean Corpuscular HGB Conc 34.5 g/dL (30.0-36.0); Mean Corpuscular Volume 89.8 fl (80-94); Mean Platelet Volume 9.1 fL (7.4-10.4); Monocytes # 0.5 10^3/uL (0.2-0.9); Monocytes % 7.8 %; Neutrophils % 71.6 %; Nucleated Red Blood Cells % 0 %; Platelet Count 224 10^3/cmm (130-400); Red Blood Count 3.94 10^6/uL (4.1-5.3); Red Cell Distribution Width 12.1 % (12.1-15.1)
[2022-03-12 04:37] LABS: Anion Gap 13.6 (5-19); Blood Urea Nitrogen 5 mg/dL (8-23); Calcium 8.8 mg/dL (8.5-10.5); Carbon Dioxide 25 mmol/L (22-29); Chloride 99 mmol/L (98-107); Glucose 89 mg/dL (65-115); Magnesium 1.8 mg/dL (1.7-2.3); Osmolality Calculated 275 mOsm/kg (285-295); Potassium 3.6 mmol/L (3.5-5.1); Sodium 134 mmol/L (136-145); Thyroid Stimulating Hormone 5.73 uIU/mL (0.27-4.20); Vitamin B12 170 pg/mL (232-1245)
[2022-03-12 04:38] LABS: Estmated Average Glucose 114; Hemoglobin A1C 5.6 % (4.0-6.0)
[2022-03-12] MEDS: venlafaxine ER (24HR) 150 mg Capsule PO (09:55)
[2022-03-12] MEDS: levothyroxine 75 mcg Tablet PO (09:55)
[2022-03-12 13:08] LABS: Free T4 Free Thyroxine 0.82 ng/dL (0.82-1.77); T3 Free 2.4 PG/ML (2.0-4.4)
--- NOTE | 2022-03-12 13:42 | CTR_ITS ---
PROCEDURE INFORMATION: Exam: CTA Head With Contrast, Arteries Exam date and time: 03/12/2022 4:59 PM Age: 61 years old Clinical indication: Injury or trauma; Fall; Blunt trauma and concussion; Head; Additional info: Patient fell from ladder, possible TIA, bilateral black eyes TECHNIQUE: Imaging protocol: Computed tomographic angiography of the head with contrast. 3D rendering (Not supervised by radiologist): MIP and/or 3D reconstructed images were created by the technologist. Radiation optimization: All CT scans at this facility use at least one of these dose optimization techniques: automated exposure control; mA and/or kV adjustment per patient size (includes targeted exams where dose is matched to clinical indication); or iterative reconstruction. Contrast material: OMNIPAQUE 350; Contrast volume: 95 ml; Contrast route: INTRAVENOUS (IV); COMPARISON: CT head wo con* [id number] 03/11/2022 10:47 AM RADIATION DOSE METRICS: Total DLP (mGy-cm): 552.02 FINDINGS: ANTERIOR CIRCULATION: Right internal carotid artery: Unremarkable. Intracranial segment is patent with no significant stenosis. No aneurysm. Right middle cerebral artery: Unremarkable. No occlusion or significant stenosis. No aneurysm. Right anterior cerebral artery: Unremarkable. No occlusion or significant stenosis. No aneurysm. Left internal carotid artery: Unremarkable. Intracranial segment is patent with no significant stenosis. No aneurysm. Left middle cerebral artery: Unremarkable. No occlusion or significant stenosis. No aneurysm. Left anterior cerebral artery: Unremarkable. No occlusion or significant stenosis. No aneurysm. POSTERIOR CIRCULATION: Right vertebral artery: Unremarkable. No occlusion or significant stenosis. No aneurysm. Left vertebral artery: Unremarkable. No occlusion or significant stenosis. No aneurysm. Basilar artery: Unremarkable. No occlusion or significant stenosis. No aneurysm. Right posterior cerebral artery: Unremarkable. No occlusion or significant stenosis. No aneurysm. Left posterior cerebral artery: Unremarkable. No occlusion or significant stenosis. No aneurysm. Brain: No definite mass, mass effect, or midline shift. Cerebral ventricles: No ventriculomegaly. Bones/joints: Unremarkable. No acute fracture. Soft tissues: Unremarkable. PROCEDURE INFORMATION: Exam: CTA Neck With Contrast Exam date and time: 03/12/2022 4:59 PM Age: 61 years old Clinical indication: Injury or trauma; Fall; Blunt trauma and concussion; Head; Additional info: Patient fell from ladder, possible TIA, bilateral black eyes TECHNIQUE: Imaging protocol: Computed tomographic angiography of the neck with contrast. 3D rendering (Not supervised by radiologist): MIP and/or 3D reconstructed images were created by the technologist. Radiation optimization: All CT scans at this facility use at least one of these dose optimization techniques: automated exposure control; mA and/or kV adjustment per patient size (includes targeted exams where dose is matched to clinical indication); or iterative reconstruction. Contrast material: OMNIPAQUE 350; Contrast volume: 95 ml; Contrast route: INTRAVENOUS (IV); COMPARISON: CT cervical spin wo con* [id number] 03/11/2022 10:53 AM RADIATION DOSE METRICS: Total DLP (mGy-cm): 552.02 FINDINGS: Right common carotid artery: No stenosis. No dissection or occlusion. Right internal carotid artery: Mild calcified plaque in the proximal right internal carotid artery with 0% stenosis. Right external carotid artery: No occlusion or stenosis of the origin. Left common carotid artery: No stenosis. No dissection or occlusion. Left internal carotid artery: Mild calcified plaque in the proximal left internal carotid artery with 0% stenosis. Left external carotid artery: No occlusion or stenosis of the origin. Right vertebral artery: No stenosis. No dissection or occlusion. Left vertebral artery: No stenosis. No dissection or occlusion. Soft tissues: Normal. No significant soft tissue swelling. Bones/joints: No acute fracture. CT/CT angio headneck* [id number] IMPRESSION: No large vessel stenosis or occlusion. IMPRESSION: 1. Calcified plaque in the proximal internal carotid arteries with 0% stenosis. REFERENCES: NASCET CRITERIA. The degree of internal carotid artery stenosis is based on NASCET criteria. Normal is no stenosis. Mild is less than 50% stenosis. Moderate is 50-69% stenosis. Severe is 70% to 99% stenosis. Total occlusion is no detectable patent lumen.
[2022-03-12] MEDS: amlodipine 10 mg Tablet PO (14:03)
[2022-03-12] MEDS: cyanocobalamin 1,000 mcg/mL SDV 1000 MCG IM (14:03)
[2022-03-12] MEDS: iohexol 350 mg/mL 100 mL Btl IV (17:21)
--- NOTE | 2022-03-12 18:41 | PM.DCS ---
Discharge Providers Date of Admission: 03/11/22 13:46 Date of Discharge: March 12, 2022 Attending Provider at Admission: Ja Campbell MD Attending Provider at Discharge: Samir Nieves MD Primary Care Provider: Nicolette Howe Diagnoses at Discharge Discharge Diagnosis (1) Fall: Status: Acute (2) Dehydration: Status: Acute (3) Syncope and collapse: Status: Acute Reason for Visit Reason for Visit: UNRESPONSIVE; FALL FROM LADDER Brief History: History as per HPI: Israel Owens is a 61 year old male with past medical history of hypothyroidism, was brought in with chief complaint of, after being found down by his friend today at his home, when I interacted with the patient He told me that he was at his usual self prior to this episode, he was painting his wall today at home, and thinks that likely spray from the paint made him lose his consciousness, he denies any preceding chest pain shortness of breath nausea vomiting, dizziness headache, blurred vision, weakness in any body part. Hospital Course Hospital Course Patient was admitted under observation for further evaluation and management for syncopal event. Patient did not have any further events during hospitalization. CT head, CT face, CT head and neck which were done which were in negative for any acute abnormality. Echocardiogram was done which showed normal EF without regional wall motion abnormality. Patient did have elevated blood pressure during hospitalization for which she was started on amlodipine. Further need for lifestyle modification and better blood pressure control were discussed in detail with patient and patient's at bedside. He was also found to have low vitamin B12 levels which were repleted with IM cyanocobalamin. Patient is due for monthly cyanocobalamin injections which she has been forgetting recently. He has been discharged in hemodynamically stable condition on oral amlodipine. He is advised to check his blood pressure daily and maintain a blood pressure diary for next 2 weeks and follow-up with his primary care provider for further adjustment of antihypertensives if needed. Physical Exam Const: COMMON NORMALS: patient oriented x3 HENMT: COMMON NORMALS: external ears normal EXTERNAL EAR: Yes external ears normal Eye: COMMON NORMALS: no scleral icterus GENERAL EYE: appearance normal, both eyes and all related structures Chest: CHEST: Yes Symmetrical chest wall rise Resp: COMMON NORMALS: normal respiratory effort, No retractions, No use of accessory muscles and clear to auscultation bilaterally EFFORT & INSPECTION: Yes symmetric chest movement AUSCULTATION: clear to auscultation bilaterally Cardio: COMMON NORMALS: regular rate, regular rhythm, S1 normal heart sound present, S2 normal heart sound present, No gallops present (Cardio), No murmurs present (Cardio), No rub (Cardio) and Peripheral pulses 2+ throughout RATE: regular rate RHYTHM: regular rhythm HEART SOUNDS: S1 normal heart sound present and S2 normal heart sound present PERIPHERAL PULSES: Peripheral pulses 2+ throughout GI: COMMON NORMALS: Normal to inspection, nondistended, normoactive bowel sounds present, Soft to palpation, non-tender, No hepatosplenomegaly present and no masses AUSCULTATION: Yes normoactive bowel sounds PALPATION: Yes Soft to palpation and Yes No hepatosplenomegaly present RECTAL EXAM: Yes deferred Extremity: COMMON NORMALS: no clubbing, cyanosis or edema and no pedal edema Neuro: COMMON NORMALS: patient oriented x3 Discharge Data Studies Completed and Pending Completed Studies During Hospitalization Category Date Time Status CT cervical spin wo con* [id number] Stat Cat Scan 03/11/22 10:[address] chest abdomen pelvis [CT chest abd pel w con*] Stat Cat Scan 03/11/22 10:[address] facial bones wo con* [id number] Stat Cat Scan 03/11/22 10:[address] head wo con* [id number] Stat Cat Scan 03/11/22 10:30 Completed CTA head neck [CT angio headneck* [id number]] Routine Cat Scan 03/12/22 13:42 Completed US echo complete [CV. echo complete* [id number]] Routine Ultrasound 03/11/22 17:02 Completed Pending at discharge Category Date Time Status Basic Metabolic Panel AM LABS Lab 03/13/22 04:00 Ordered Basic Metabolic Panel AM LABS Lab 03/14/22 04:00 Ordered Complete Blood Count w/Auto AM LABS Lab 03/13/22 04:00 Ordered Complete Blood Count w/Auto AM LABS Lab 03/14/22 04:00 Ordered Radiology Impressions Cervical Spine CT 03/11/22 10:30 IMPRESSION: No acute findings. Chest/Abdomen/Pelvis CT 03/11/22 10:30 IMPRESSION: No acute traumatic intrathoracic findings. IMPRESSION: No acute traumatic intra-abdominal findings. Face CT 03/11/22 10:30 IMPRESSION: Right-sided deviation of the nasal septum which may be chronic. Correlate for signs of nasal fracture. Otherwise, no acute findings. Head CT 03/11/22 10:30 IMPRESSION: No acute intracranial abnormality. Head/Neck CTA 03/12/22 13:42 IMPRESSION: No large vessel stenosis or occlusion. IMPRESSION: 1. Calcified plaque in the proximal internal carotid arteries with 0% stenosis. REFERENCES: NASCET CRITERIA. The degree of internal carotid artery stenosis is based on NASCET criteria. Normal is no stenosis. Mild is less than 50% stenosis. Moderate is 50-69% stenosis. Severe is 70% to 99% stenosis. Total occlusion is no detectable patent lumen. Laboratory Results WBC 6.0 10^3/uL (4.0-10.0) 03/12/22 02:54 RBC 3.94 10^6/uL (4.1-5.3) L 03/12/22 02:54 Hgb 12.2 g/dL (11.7-16.6) 03/12/22 02:54 Hct 35.4 % (42.0-52.0) L 03/12/22 02:54 MCV 89.8 fl (80-94) 03/12/22 02:54 MCH 31.0 pg (28.0-34.0) 03/12/22 02:54 MCHC 34.5 g/dL (30.0-36.0) 03/12/22 02:54 RDW 12.1 % (12.1-15.1) 03/12/22 02:54 Plt Count 224 10^3/cmm (130-400) 03/12/22 02:54 MPV 9.1 fL (7.4-10.4) 03/12/22 02:54 Neut % (Auto) 71.6 % 03/12/22 02:54 Lymph % (Auto) 19.8 % 03/12/22 02:54 [place] % (Auto) 7.8 % 03/12/22 02:54 Eos % (Auto) 0.3 % 03/12/22 02:54 Baso % (Auto) 0.3 % 03/12/22 02:54 Neut # (Auto) 4.30 10^3/uL (1.8-7.7) 03/12/22 02:54 Lymph # (Auto) 1.2 10^3/uL (0.8-4.8) 03/12/22 02:54 [place] # (Auto) 0.5 10^3/uL (0.2-0.9) 03/12/22 02:54 Eos # (Auto) 0.0 10^3/uL (0.0-0.8) 03/12/22 02:54 Baso # (Auto) 0.0 10^3/uL (0.0-0.1) 03/12/22 02:54 Nucleated RBC % (auto) 0 % 03/12/22 02:54 Nucleated RBCs # 0.0 /100WBC 03/12/22 02:54 Sodium 134 mmol/L (136-145) L 03/12/22 02:54 Potassium 3.6 mmol/L (3.5-5.1) 03/12/22 02:54 Chloride 99 mmol/L (98-107) 03/12/22 02:54 Carbon Dioxide 25 mmol/L (22-29) 03/12/22 02:54 Anion Gap 13.6 (5-19) 03/12/22 02:54 BUN 5 mg/dL (8-23) L 03/12/22 02:54 Creatinine 0.8 mg/dL (0.7-1.2) 03/12/22 02:54 GFR Calculation 98.0 mL/min (90-130) 03/12/22 02:54 Glucose 89 mg/dL (65-115) 03/12/22 02:54 POC Glucose 130 mg/dL (70-110) H 03/11/22 11:26 Estimat Average Glucose 114 03/12/22 02:54 Hemoglobin A1c 5.6 % (4.0-6.0) 03/12/22 02:54 Calculated Osmolality 275 mOsm/kg (285-295) L 03/12/22 02:54 Calcium 8.8 mg/dL (8.5-10.5) 03/12/22 02:54 Magnesium 1.8 mg/dL (1.7-2.3) 03/12/22 02:54 Total Bilirubin 0.4 mg/dL (0.15-1.2) 03/11/22 10:30 AST 78 U/L (0-40) H 03/11/22 10:30 ALT 61 U/L (0-41) H 03/11/22 10:30 Alkaline Phosphatase 161 IU/L (40-130) H 03/11/22 10:30 Troponin T Baseline 7 ng/L (0-15) 03/11/22 10:30 Troponin T 120 Minute 6.82 ng/L (0-15) 03/11/22 12:51 Delta Troponin T -0.18 ABS# (0-10) L 03/11/22 12:51 Troponin T Hi Sens 6Hr 6.20 ng/L (0-15) 03/11/22 16:59 Troponin T Hi Sens 6Hr Delta -0.8 ng/L (0-12) L 03/11/22 16:59 Total Protein 8.6 g/dL (6.6-8.7) 03/11/22 10:30 Albumin 5.2 g/dL (3.5-5.2) 03/11/22 10:30 Globulin 3.4 g/dL (1.3-4.6) 03/11/22 10:30 Vitamin B12 170 pg/mL (232-1245) L 03/12/22 02:54 TSH 5.73 uIU/mL (0.27-4.20) H 03/12/22 02:54 Free T4 0.82 ng/dL (0.82-1.77) 03/12/22 02:54 Free T3 2.4 PG/ML (2.0-4.4) 03/12/22 02:54 Urine Color Straw (Yellow) 03/11/22 17:00 Urine Appearance Clear (CLEAR) 03/11/22 17:00 Urine pH 7 (5-7) 03/11/22 17:00 Ur Specific [place] 1.005 (1.005-1.030) 03/11/22 17:00 Urine Protein Trace (Negative) 03/11/22 17:00 Urine Glucose (UA) Norm (Normal) 03/11/22 17:00 Urine Ketones Negative (Negative) 03/11/22 17:00 Urine Blood Neg (Negative) 03/11/22 17:00 Urine Nitrate Negative (Negative) 03/11/22 17:00 Urine Bilirubin Neg (Negative) 03/11/22 17:00 Urine Urobilinogen Norm mg/dL (Negative) 03/11/22 17:00 Ur Leukocyte Esterase Negative (Negative) 03/11/22 17:00 Urine RBC None /hpf (0-2) 03/11/22 17:00 Urine WBC Rare /hpf (0-5) 03/11/22 17:00 Ur Squamous Epith Cells None /hpf (0-5) 03/11/22 17:00 Amorphous Sediment Not Reportable 03/11/22 17:00 Urine Bacteria Trace /hpf (NONE) 03/11/22 17:00 Ethyl Alcohol < 10 mg/dL (0-10) 03/11/22 10:30 Vitals Last Vital Signs Temp 98.2 F 03/12/22 15:23 Pulse 72 03/12/22 15:23 Resp 15 03/12/22 15:23 BP 162/83 03/12/22 15:23 Pulse Ox 97 03/12/22 15:23 Discharge Plan Discharge Patient Disposition: Home Condition: Stable Prescriptions: New Vitamin B-12 1,000 mcg Tablet 500 mcg PO DAILY Qty: 30 0RF amlodipine 10 mg Tablet 10 mg PO DAILY Qty: 30 0RF Continued cyanocobalamin (vitamin B-12) 1,000 mcg/mL solution 1,000 mcg SUBCUT UNK 0RF acetaminophen [Tylenol] 325 mg Tablet 650 mg PO QID PRN (Reason: pain) 0RF venlafaxine 150 mg capsule,extended release 24hr 150 mg PO DAILY 0RF levothyroxine 75 mcg tablet 75 mcg PO DAILY 0RF Discharge Orders: Discharge Order (Routine); Ordered 03/12/22 Ordered By: Samir Nieves Referrals: Nicolette Howe PA [Primary Care Provider] - 2 weeks (Call you provider tomorrow and schedule an appointment in 2 weeks) Discharge Diet: Cardiac Discharge Activity: Resume usual activity and Increase activity as tolerated Patient Instructions: Amlodipine (By mouth), Vitamin B-12 (By mouth), Dehydration (DC), Opioid Safety Activity Restrictions/Additional Instructions: Please check your blood pressure daily and maintain a blood pressure diary and follow-up with her primary care provider within next 2 weeks for further adjustment of antihypertensives as needed. Please continue taking vitamin B12 shots once monthly. Take cyanocobalamin/vitamin B12 oral tablets for 1 month. Please maintain your hydration with fluids up to 2 to 3 L daily. Discharge Attestations Time Spent in Discharge Care*: greater than 30 min Quality Metrics Clinical Quality Measures [ No reported AMI, CVA or VTE this stay] Coding Level of Care Code Acute Chg FW DC note Diagnoses Fall W19.XXXA Dehydration E86.0 Syncope and collapse R55
== END 2022-03-12 19:07 | disposition home or self-care (01) ==
LOC: ER 13:46 → MEDSURG 14:37
PROVIDERS: Admitting Provider Internal Medicine; Emergency Provider Emergency Medicine; PCP Physician Assistant; Visit Provider Student in an Organized Health Care Education/Training Program
DX: E86.0 Dehydration (principal); R55 Syncope and collapse; Z91.81 History of falling; E03.9 Hypothyroidism, unspecified
CPT/HCPCS: 36415; 36416; 70450; 70486; 70496; 70498; 71260; 72125; 74177; 80048; 80053; 80307; 81001; 82607; 82962; 83036; 83735; 84439; 84443; 84481; 84484; 85025; 90471; 90715; 93005; 93306; 96360; 96361; 96372; 99285; G0378; J1650; J3420; J7030; Q9967